=== PATIENT | female | born 1990 | race Caucasian/White ===

== ENCOUNTER 2017-01-13 11:42 | Emergency (ER) | payer OTHER ==
[~2017-01-13] VITALS: Ht 170.2 cm; Wt 76.4 kg
[~2017-01-13 11:42] MED LIST: ETON1VAG VG; LORA1TAB PO
[2017-01-13 11:45] VITALS: BP 135/85; PULSE 72; RESP 16; O2SAT 100
--- NOTE | 2017-01-13 11:54 | ED.REPORT ---
HPI-General Illness Date of Service Jan 13, 2017 ED Provider: Susanna is a 26-year-old female presents with chief complaint of headache. Patient states the headache began roughly 2 days ago and she is preparing to go to bed. First noticed is a mild frontal headache. Patient reports steadily worsening until presentation. She complains of an occipital headache, which briefly including pain over hand including her left eye but now includes the right church. She rates her pain 6/10. Denies vision changes, hearing changes , dizziness, weakness in a limb, difficulty speaking, fever, neck pain. Patient reports a similar episode approximately 2 years ago which she states last 2 weeks and resolved without treatment. She is concerned about a lump on her left occiput which she reports been present since she had a head injury as a child. She does not believe she has any other lingering sequela. She is concerned that this might be growing and "pushing on a blood vessel." Nursing Notes Stated Complaint: HEAD PAIN/EYE PAIN Nursing Notes Reviewed: Yes Allergies: Coded Allergies: Sulfa (Sulfonamide Antibiotics) (Verified Allergy, Severe, hives, 09/02/15) lorazepam (Verified Allergy, Intermediate, face swells, 01/13/17) Scheduled PRN Lorazepam (Lorazepam) 1 Mg Tablet 1 MG PO TID PRN PRN For Anxiety Miscellaneous Medications Etonogestrel/Ethinyl Estradiol (Nuvaring Vaginal Ring) 1 Each Vag.ring 1 EACH VG General Time Seen by MD: 11:53 Chief Complaint Headache Past Medical History Past Medical History Anxiety Reports: Hyperlipidemia Past Surgical History None reported Smoking History Never Smoker Social History Alcohol Use: "Social" Ambulatory Status Independent Review of Systems Negative unless stated otherwise in history of present illness Physical Exam General: Well appearing, well developed, well nourished, no acute distress. Mildly anxious appearing. Appears to be sitting comfortably on the gurney. Head: Atraumatic, normocephalic. No mastoid tenderness. No significant masses appreciated on the occipital skull, though there does appear to be some variation in structure side to side. Eyes: No scleral icterus or injection. Anterior chambers clear. No discharge. PERRL. EOMI. Vision grossly intact. Ears: Pinna and tragus nontender with manipulation. External auditory canal patent, atraumatic and without discharge. Tympanic membrane ding, shiny and translucent without fluid, bulging, retraction or perforation. Hearing grossly intact. Negative mastoid tenderness. Nose: Symmetrical, nares patent without discharge. No frontal or maxillary sinus tenderness. Mouth/pharynx: normal dentition, mucus membranes moist. Tonsils 2+ and symmetrical, uvula midline. Pharynx noninjected, no cobblestoning or discharge. Voice clear. Neck: No tenderness or lymphadenopathy. Trachea midline. Respiratory: Regular rate and rhythm. Breath sounds present, clear to auscultation and equal bilaterally. No respiratory distress. No increased work of breathing, speaks in complete sentences. Cardiovascular: Regular rate and rhythm, without murmur, gallop or rub. No pedal edema. Gastrointestinal: Abdomen flat and non-tender without guarding or rebound. Bowel sounds normoactive. Skin: Warm and dry. Neurological: Sensation and strength grossly intact in distal extremities and equal bilaterally. Normal finger-nose, heel-macias, rapid hand. Negative pronator drift. Cranial nerves: Vision grossly intact, PERRL, EOMI. Facial motion symmetrical, sensation to light touch over forehead, maxilla and mandible present and equal B /L. Voice clear and fluent, no drooling/pooling of saliva, uvula rises midline. Psychological: Alert and oriented. Speech appropriate, linear and logical. Behavior appropriate. Vital Signs Vital Signs Date Time Temp Pulse Resp B/P Pulse Ox O2 Delivery O2 Flow Rate FiO2 01/13/17 15:07 60 20 112/79 100 Room Air 01/13/17 11:45 36.7 72 16 135/85 100 Room Air Elevated blood pressure Interpretation & Diagnostics Lab Results Interpretation Test 01/13/17 12:55 Hold Urine Received (Received) CT Head Interpretation PROCEDURE: CT BRAIN WITHOUT CONTRAST ([id number]) INDICATIONS: headache, concern for growth on posterior scalp TECHNIQUE: Noncontrast 4.5 mm thick angled axial sections acquired from the foramen magnum to the vertex, with coronal reformats. COMPARISON: None. FINDINGS: Skull and face: A fiducial marker placed on the left parietal scalp is noted. There is no definite underlying focal fluid collection or mass identified however possible skin thickening and recommend clinical correlation and direct visual inspection to exclude superficial lesion. IMPRESSION: No acute intracranial process. Interpretation / Wet Read by: Interpret - Radiologist Re-Eval/Medical Decision Med Decision/Clinical Course Otherwise healthy 26-year-old female presents with chief complaint of 2 day history of gradual onset headache, currently occipital and over the right church and described as throbbing. Aggravated by motion. Denies neurological symptoms, sudden onset, fever. The patient is very concerned about a lump on the back of her head she states has been present since childhood following head injury at that time. She is concerned it is growing and causing her headache. She reports one episode of similar symptoms approximately 2 years ago, lasting 2 weeks and resolved without treatment. Physical examination is benign including a normal neurological examination and vital signs. I cannot appreciate a mass on her left occiput but do detect variations in structure. Discussed the case with Dr. Corcoran, who met with and examine the patient. CT scan is ordered due to the patient's high level of concern, as well as a bedside urine , which is negative. Further treatment is declined. Head CT is reassuring. At this point we are reassured against intracranial bleeding, mass, meningitis, CVA, glaucoma, giant cell arteritis. Advised regarding primary care follow-up, provided emergency return precautions. Patient verbalized understanding of, and consent to, the plan. Discharge & Departure Primary Impression: Headache Headache type: unspecified Headache chronicity pattern: unspecified pattern Intractability: not intractable Qualified Code: R51 - Headache Disposition: Home Discharge Condition All VS Reviewed: Yes Patient Instructions: Acute Headache (ED) Additional Instructions: Evaluation in the emergency department for headache includes interview, physical examination CT, all of which are reassuring that your headache is unlikely to be caused by immediately dangerous conditions such as a mass, bleeding or infection. I believe you are stable and safe to go home. You have declined further treatment here in the emergency department. The pain is best treated with 500 mg of naproxen (Aleve) every 12 hours, or 1000 mg of acetaminophen (Tylenol) every 6 hours. These drugs can be taken at the same time for more severe pain. Follow-up with your primary care provider in the next few days to further assess your symptoms. Return to emergency department for any new or worsening symptoms including sudden changes in your headache, neurological symptoms such as weakness in a limb or difficulty speaking or seeing. Referrals: Nelson Lopez DO EDSupervising Provider for APC: Danny Corcoran MD Attending Statement I saw and evaluated the patient in conjunction with the PA. I agree with the plan and findings as documented above. In brief, 26 yo F presenting to the ED for evaluation of a gradual onset headache. Well appearing, no acute distress. Nonlabored respirations. Good peripheral perfusion. RRR. Normal neuro exam. Head CT neg for acute abnl. Given reassuring exam and clinical history, plan discharge home w/ careful return precautions, close outpatient follow up. Patient agreeable to plan as stated, no further questions. copies to: Nelson Lopez William B MD Jan 13, 2017 11:54 Raj Kaufman PA-C Jan 13, 2017 12:25
--- NOTE | 2017-01-13 14:40 | DRSVH ---
PROCEDURE: CT BRAIN WITHOUT CONTRAST ([id number]) INDICATIONS: headache, concern for growth on posterior scalp TECHNIQUE: Noncontrast 4.5 mm thick angled axial sections acquired from the foramen magnum to the vertex, with c oronal reformats. COMPARISON: None. FINDINGS: Image quality: Excellent. CSF spaces: Basal cisterns are patent. No extra-axial fluid collections. Ventricles are normal in size and shape. Brain: No midline shift. No intracranial masses or hemorrhage. Jessica-white matter interface is norm al. Skull and face: A fiducial marker placed on the left parietal scalp is noted. There is no definite u nderlying focal fluid collection or mass identified however possible skin thickening and recommend cl inical correlation and direct visual inspection to exclude superficial lesion. Calvarium and visualized facial bones are intact, without suspicious lesions. Sinuses: Visualized sinuses and mastoids are clear. IMPRESSION: No acute intracranial process. No discrete mass or focal fluid collection in the area marked by the fiducial as above. Recommend cli nical correlation and direct visual inspection to exclude superficial mass. Dictated by: Jhon Spangler M.D. on 01/13/2017 at 14:35 Approved by: Jhon Spangler M.D. on 01/13/2017 at 14:38
[2017-01-13 15:07] VITALS: BP 112/79; PULSE 60; RESP 20; O2SAT 100
== END 2017-01-13 15:07 | disposition home or self-care (01) ==
LOC: SED 11:42
DX: R51 Headache (principal); H57.12 Ocular pain, left eye; F41.9 Anxiety disorder, unspecified; E78.5 Hyperlipidemia, unspecified; Z88.2 Allergy status to sulfonamides; Z88.5 Allergy status to narcotic agent